=== PATIENT | female | born 1995 | race American Indian/Alaskan Native ===

== ENCOUNTER 2017-12-04 08:47 | Emergency (ER) | payer MEDICAID ==
[2017-12-04 09:52] VITALS: BP 104/58
[2017-12-04 10:13] LABS: Basophils # (Auto) 0.1 K/mm3 (0.0-0.1); Eosinophils # (Auto) 0.2 K/mm3 (0.0-0.4); Eosinophils % (Auto) 2.9 % (0.0-4.3); Hemoglobin 13.7 gm/dl (10.1-14.3); Lymphocytes # (Auto) 2.6 K/mm3 (1.2-5.4); Lymphocytes % (Auto) 45.3 % (13.4-35.0); Mean Corpuscular HGB Conc 34 % (30-34); Mean Corpuscular Hemoglobin 30 pg (28-32); Mean Corpuscular Volume 90 fl (79-97); Monocytes # (Auto) 0.5 K/mm3 (0.0-0.8); Monocytes % (Auto) 8.7 % (0.0-7.3); Platelet Count 295 K/mm3 (140-440); Red Blood Count 4.57 M/mm3 (3.65-5.03); Red Cell Distribution Width 13.7 % (13.2-15.2)
--- NOTE | 2017-12-04 10:25 | Emergency Department Report ---
Chief Complaint: Abdominal Pain Stated Complaint: ABD PAIN LOWER Time Seen by Provider: 12/04/17 10:11 - HPI History of Present Illness: 22-year-old AA female presents to the emergency department with complaint of some pelvic discomfort for the past 2 weeks. She has some mild creamy white discharge occasionally. She denies any dysuria. She denies any fever, back pain, nausea, vomiting. No past medical history. She has not taken anything for her symptoms prior to presentation. She has an [employer] but has not seen them regarding her symptoms. - ROS Review of Systems: Positive for pelvic discomfort and vaginal discharge Negative for dysuria, vaginal bleeding, back pain, fever, nausea or vomiting - Exam Vital Signs: Vital Signs 12/04/17 09:49 Temperature 97.8 F Pulse Rate 55 L Respiratory 16 Rate Blood Pressure 104/58 O2 Sat by Pulse 100 Oximetry Physical Exam: Heart and lungs sounds are normal to auscultation. Patient is awake and alert in no acute distress. MSE screening note: Focused history and physical exam performed. Due to findings the following was ordered: We are awaiting the results of her blood work and she will need to leave a urine sample. Patient will need a pelvic examination and wet prep. ED Medical Decision Making - Lab Data Result diagrams: 12/04/17 09:59 ED Disposition for MSE Condition: Stable Instructions: Abdominal Pain (ED) Referrals: PRIMARY CARE, [Primary Care Provider] - 3-5 Days
[2017-12-04 10:35] LABS: Alanine Aminotransferase 11 units/L (7-56); Albumin 4.1 g/dL (3.9-5); BUN/Creatinine Ratio 24; Blood Urea Nitrogen 12 mg/dL (7-17); Calcium 9.2 mg/dL (8.4-10.2); Hemolysis Index 11
[2017-12-04 11:32] LABS: Bilirubin,Urine NEG (Negative); Blood,Urine NEG (Negative); Color,Urine Yellow (Yellow); Mucus,Urine FEW /HPF; Protein,Urine <15 mg/dL mg/dL (Negative); RBC,Urine < 1.0 /HPF (0.0-6.0); Urobilinogen,Urine < 2.0 mg/dL (<2.0)
--- NOTE | 2017-12-04 11:40 | Emergency Department Report ---
ED Female HPI - General Chief complaint: Abdominal Pain Stated complaint: ABD PAIN LOWER Time Seen by Provider: 12/04/17 10:11 Source: patient Mode of arrival: Ambulatory Limitations: No Limitations - History of Present Illness Initial comments: This is a 22-year-old female who presents with vaginal discharge and lower abdominal pain for 2 weeks. Past medical history of hypertension. Patient states she is currently having some creamy white vaginal discharge with sharp lower pelvic pain for the past 2 weeks. Patient admits to a new partner and possible exposure to STDs. Patient states she was diagnosed with Trichomonas 6 months ago and these symptoms are pretty similar. Patient denies frequency, urgency, dysuria, low back pain, fever, and chest pain. MD Complaint: vaginal discharge Onset/Timin -: week(s) Location: suprapubic Radiation: non-radiating Severity: moderate Severity scale (0 -10): 5 Quality: cramping Consistency: constant Improves with: none Worsens with: intercourse Are you Now?: No Last Menstrual Period: 11/18/17 EDC: 08/25/18 Associated Symptoms: denies other symptoms - Related Data Sexually active: Yes : 3 Para: 1 A: 2 Previous Rx's Medication Instructions Recorded Last Taken Type metroNIDAZOLE [Metronidazole] 500 mg PO BID #14 tablet 12/04/17 Unknown Rx Allergies Allergy/AdvReac Type Severity Reaction Status Date / Time No Known Allergies Allergy Unverified 12/04/17 09:49 ED Review of Systems ROS: Stated complaint: ABD PAIN LOWER Other details as noted in HPI Constitutional: denies: chills, fever Respiratory: denies: cough, shortness of breath, wheezing Cardiovascular: denies: chest pain, palpitations Gastrointestinal: abdominal pain (lower abdominal pain). denies: nausea, diarrhea Genitourinary: discharge (creamy white discharge). denies: urgency, dysuria Skin: denies: rash, lesions Neurological: denies: headache, weakness, paresthesias Psychiatric: denies: anxiety, depression ED Past Medical Hx - Past Medical History Hx Hypertension: Yes - Social History Smoking Status: Never Smoker Substance Use Type: None - Medications Home Medications: Home Medications Medication Instructions Recorded Confirmed Last Taken Type metroNIDAZOLE [Metronidazole] 500 mg PO BID #14 tablet 12/04/17 Unknown Rx ED Physical Exam - General Limitations: No Limitations General appearance: alert, in no apparent distress - Respiratory Respiratory exam: Present: normal lung sounds bilaterally. Absent: respiratory distress - Cardiovascular Cardiovascular Exam: Present: regular rate, normal rhythm. Absent: systolic murmur, diastolic murmur, rubs, gallop - GI/Abdominal GI/Abdominal exam: Present: soft, tenderness (suprapubic tenderness on palpation ), guarding, normal bowel sounds. Absent: distended, rebound, rigid, organomegaly, mass - External exam: Present: normal external exam Speculum exam: Present: erythema, vaginal discharge (malodorous frothy discharge ). Absent: cervical discharge, vaginal bleeding, foreign body Bi-manual exam: Present: cervical motion tendernes. Absent: adnexal tenderness , adnexal mass, uterine enlargement, uterine tenderness - Back Exam Back exam: Present: normal inspection - Neurological Exam Neurological exam: Present: alert, oriented X3 - Psychiatric Psychiatric exam: Present: normal affect, normal mood - Skin Skin exam: Present: warm, dry, intact, normal color. Absent: rash ED Course Vital Signs 12/04/17 09:49 Temperature 97.8 F Pulse Rate 55 L Respiratory 16 Rate Blood Pressure 104/58 O2 Sat by Pulse 100 Oximetry ED Medical Decision Making - Lab Data Result diagrams: 12/04/17 09:59 12/04/17 09:59 - Medical Decision Making This is a 22-year-old -Thai female who presents with vaginal itch irritation and discharge for 2 weeks. Patient was examined by me and Dr. Kaye. Vitals are stable and in no acute distress. Labs obtained. Gonorrhea and chlamydia pending. Wet prep positive for clue cells, negative trichomoniasis and yeast. Empirically treated with Rocephin 250 mg IM and azithromycin 1 g by mouth. Patient instructed to follow up in 3-5 days for GC results. Start metronidazole for bacterial vaginitis. Discharged home in stable condition. Discussed prevention options. F/U with PCP or Health Department. Critical care attestation.: If time is entered above; I have spent that time in minutes in the direct care of this critically ill patient, excluding procedure time. ED Disposition Clinical Impression: Bacterial vaginal infection, Vaginal discharge, Exposure to STD Abdominal pain Qualifiers: Abdominal location: lower abdomen, unspecified Qualified Code(s): R10.30 - Lower abdominal pain, unspecified Disposition: TO HOME OR SELFCARE Is pt being admited?: No Does the pt Need Aspirin: No Condition: Stable Instructions: Bacterial Vaginosis (ED) Additional Instructions: Before course of antibiotics as prescribed. Avoid drinking alcohol while taking antibiotics and for 24 hours after completion. Continue safe sexual intercourse. Follow up with Primary Care Provider or health department. Prescriptions: metroNIDAZOLE [Metronidazole] 500 mg PO BID #14 tablet Referrals: [facility] [Outside] - 3-5 Days [facility] [Provider Group] - 3-5 Days [facility] [Provider Group] - 3-5 Days Forms: STI Treatment and Prevention Time of Disposition: 13:22 Print Language: ROMANIAN
[2017-12-04] MEDS ORDERED: XYLOCAINE 1% MPF 5 mL INFILTRATI ONE (13:23)
[2017-12-04] MEDS ORDERED: ROCEPHIN IM ONE (13:23)
[2017-12-04] MEDS ORDERED: ZITHROMAX PO ONE (13:23)
[2017-12-04] MEDS ORDERED: XYLOCAINE 1% 20 mL ONE (13:49)
== END 2017-12-04 13:58 | disposition home or self-care (01) ==
LOC: ED 08:47
DX: N76.0 Acute vaginitis (principal); I10 Essential (primary) hypertension
CPT/HCPCS: 36415; 80053; 81001; 84703; 85025; 87210; 87591; 96372; 99284; J0696

== ENCOUNTER 2017-12-08 18:32 | Emergency (ER) | payer MEDICAID | END 2017-12-08 19:23 | disposition left against medical advice (07) | LOC: ED 18:32 | DX: T14.8XXA Other injury of unspecified body region, initial encounter (principal); Z53.21 Procedure and treatment not carried out due to patient leaving prior to being seen by health care provider; X58.XXXA Exposure to other specified factors, initial encounter; Y93.89 Activity, other specified; Y92.89 Other specified places as the place of occurrence of the external cause; Y99.8 Other external cause status ==

== ENCOUNTER 2021-08-10 21:11 | Emergency (ER) | payer MEDICAID ==
[2021-08-10 21:57] VITALS: BP 139/91
[2021-08-10 22:35] LABS: Bacteria,Urine 4+ /HPF (Negative); Bilirubin,Urine NEG (Negative); Blood,Urine NEG (Negative); Color,Urine Amber (Yellow); Mucus,Urine 3+ /HPF; Urobilinogen,Urine < 2.0 mg/dL (<2.0)
[2021-08-10 22:48] LABS: Basophils # (Auto) 0.1 K/mm3 (0.0-0.1); Basophils % (Auto) 0.7 % (0.0-1.8); Eosinophils # (Auto) 0.1 K/mm3 (0.0-0.4); Eosinophils % (Auto) 1.1 % (0.0-4.3); Hematocrit 48.3 % (30.3-42.9); Hemoglobin 16.3 gm/dl (10.1-14.3); Lymphocytes # (Auto) 2.6 K/mm3 (1.2-5.4); Mean Corpuscular HGB Conc 34 % (30-34); Mean Corpuscular Volume 92 fl (79-97); Monocytes # (Auto) 0.8 K/mm3 (0.0-0.8); Monocytes % (Auto) 11.9 % (0.0-7.3); Platelet Count 296 K/mm3 (140-440); Red Blood Count 5.25 M/mm3 (3.65-5.03); Red Cell Distribution Width 12.2 % (13.2-15.2)
[2021-08-10 22:58] LABS: Alanine Aminotransferase 16 units/L (7-56); Albumin 4.5 g/dL (3.9-5); Blood Urea Nitrogen 10 mg/dL (7-17); Calcium 10.4 mg/dL (8.4-10.2); Hemolysis Index 82
[2021-08-10 23:00] LABS: BUN/Creatinine Ratio 20
== END 2021-08-11 04:50 | disposition left against medical advice (07) ==
LOC: ED 21:11
DX: O21.8 Other vomiting complicating pregnancy (principal); Z3A.01 Less than 8 weeks gestation of pregnancy; Z53.21 Procedure and treatment not carried out due to patient leaving prior to being seen by health care provider
CPT/HCPCS: 36415; 80053; 81001; 84702; 85025; 87076; 87086; 87186